=== PATIENT | male | born 1980 | race Caucasian/White ===

== ENCOUNTER → 2016-11-25 | Outpatient (CLI) | payer BC ==
[2016-11-25] VITALS (10 sets, daily range): BP systolic 106–136; BP diastolic 48–78; PULSE 48–70
[~2016-11-25] VITALS: Ht 180.3 cm; Wt 95.5 kg
[~2016-11-25] MED LIST: GLUCOSAMINE & C1 CA2 PO; MULTIPLE VITAMI1 CAP; PRIL40; ZIAC 2.5/6.25MG1 TAB
[2016-11-25 10:18] LABS: INR 1.1 (0.8-3.0); PROTHROMBIN TIME 11.7 SECONDS (9.7-12.8)
== END ==
LOC: COL.RAD 09:52
PROVIDERS: Physician Assistant
DX: K73.8 Other chronic hepatitis, not elsewhere classified (principal); K74.69 Other cirrhosis of liver; R74.8 Abnormal levels of other serum enzymes; K21.9 Gastro-esophageal reflux disease without esophagitis
CPT/HCPCS: 25581